=== PATIENT | male | born 1980 | race Caucasian/White ===

== ENCOUNTER → 2021-06-14 | Day surgery (SDC) | payer OTHER ==
[~2021-06-14] VITALS: Ht 175.3 cm; Wt 90.7 kg
[~2021-06-14] MED LIST: COLLAGEN 15001 EACH PO; FISH OIL 1,0001 EAC5 PO; FLOMAX0.4 MG PO; GINSENG COMPLE1 EACH PO; MEN'S MULTIVIT1 EACH PO; PROBIOTIC1 EAC2 PO; VITAMIN D3 PO; [UNRECOGNIZED DRUG - OTHER] PO
== END | disposition home or self-care (01) ==
LOC: FAS 06-07 10:30
DX: Z08 Encounter for follow-up examination after completed treatment for malignant neoplasm (principal); D12.3 Benign neoplasm of transverse colon; D12.6 Benign neoplasm of colon, unspecified; K62.1 Rectal polyp; K57.30 Diverticulosis of large intestine without perforation or abscess without bleeding; E11.9 Type 2 diabetes mellitus without complications; Z85.038 Personal history of other malignant neoplasm of large intestine; Z87.891 Personal history of nicotine dependence
CPT/HCPCS: J2250; J2704; J7120